=== PATIENT | female | born 1985 | race Caucasian/White ===

== ENCOUNTER 2023-02-07 21:17 | Emergency (ER) | payer OTHER ==
[~2023-02-07] VITALS: Ht 177.8 cm; Wt 76.7 kg
[2023-02-07] MEDS ORDERED: ESCI5TAB PO (21:49)
--- NOTE | 2023-02-07 21:50 | NUR ---
Patient arrive at the ER with c/o of cramps during and after urination that started 4-6 weeks ago.
--- NOTE | 2023-02-07 21:52 | NUR ---
Dr. Gardner at bedside for MSE.
[2023-02-07 22:02] LABS: *BILIRUBIN,URIN NEGATIVE (NEGATIVE); *BLOOD, URINE NEGATIVE (NEGATIVE); *CLARITY,URINE CLEAR (CLEAR); *COLOR,URINE YELLOW (YELLOW); *KETONES,URINE TRACE (NEGATIVE); *UROBILINOGEN,URINE 0.2 E.U./dl (NORMAL); LEUKOCYTE ESTERASE ,URINE NEGATIVE (NEGATIVE); NITRITE, URINE NEGATIVE (NEGATIVE); PH,URINE 5.5 (5.0-8.0); UGLUCOSE NEGATIVE (NEGATIVE)
[2023-02-07 22:17] LABS: BACTERIA,URINE DF /HPF (NONE SEEN); RBC,URINE 0-3 /HPF (0-3); SQUAMOUS EPITHELIAL CELL,UR FEW /HPF (NONE SEEN)
--- NOTE | 2023-02-07 22:18 | NUR ---
Dr. Gardner at bedside.
[2023-02-07] MEDS ORDERED: PHEN-704 PO (22:22)
[2023-02-07] MEDS ORDERED: PHENAZOPYRIDINE HCL 100 MG TABLET ONE (22:33)
--- NOTE | 2023-02-07 22:33 | NUR ---
Patient discharged to home in stable condition. Written and verbal after care instructions given. Patient verbalizes understanding of instructions. Stressed follow up or return to ER for worsening s/s. Patient is a/ox4, NAD noted. patient ambulated with steady gait
[2023-02-07 22:34] VITALS: BP 126/78
[2023-02-07] MEDS ORDERED: PHENAZOPYRIDINE HCL 100 MG TABLET PO ONE (22:45)
== END 2023-02-07 22:34 | disposition home or self-care (01) ==
LOC: ER 21:31
DX: R30.0 Dysuria (principal); Z79.899 Other long term (current) drug therapy
CPT/HCPCS: A4663